=== PATIENT | male | born 1955 | race African-American/Black ===

== ENCOUNTER 2020-04-29 14:00 | Inpatient (IN) ==
[2020-04-29] MEDS ORDERED: Lactated Ringers 1000 ml BAG 1,000 ML IV ONE (14:26)
[2020-04-29 15:24] LABS: ABS Lymphocytes 0.7 10^3/ul (1.0-4.8); ABS Monocytes 0.8 10^3/ul (0-0.8); ABS Neutrophils 6.3 10^3/ul (1.5-7.7); Eosinophil % 0.4 %; Hematocrit 42 % (42-52); Hemoglobin 13.5 g/dL (14.0-18.0); Lymphocyte % 9.2 %; Mean Corpuscular HGB Conc 33 g/dL (31-36); Mean Corpuscular Hemoglobin 27 pg (27-31); Mean Corpuscular Volume 84 fL (80-94); Mean Platelet Volume 9.5 fL (7.4-10.4); Platelet Count 147 10^3/uL (150-450); Red Blood Count 4.95 10^6 /uL (4.18-5.48); Red Cell Distribution Width 15 % (10-15); White Blood Count 7.8 10^3/uL (3.5-10.8)
[2020-04-29 15:32] LABS: INR 1.88 (0.82-1.09)
[2020-04-29 15:42] LABS: ALT 266 U/L (7-52); AST 226 U/L (13-39); Albumin 4.1 g/dL (3.2-5.2); Albumin/Globulin Ratio 1.6 (1-3); Alkaline Phosphatase 40 U/L (34-104); Anion Gap 7 mmol/L (2-11); BUN/Creatinine Ratio 21.4 (8-20); Blood Urea Nitrogen 27 mg/dL (6-24); CO2 Carbon Dioxide 30 mmol/L (22-32); Calcium 9.3 mg/dL (8.6-10.3); Chloride 102 mmol/L (101-111); EGFR African American 69.3 (>60); EGFR Non-African American 57.3 (>60); Globulin 2.6 g/dL (2-4); Glucose 99 mg/dL (70-100); Potassium 3.9 mmol/L (3.5-5.0); Sodium 139 mmol/L (135-145); Total Protein 6.7 g/dL (6.4-8.9)
[2020-04-29 15:48] LABS: Troponin I 0.11 ng/mL (<0.03)
[2020-04-29 16:03] LABS: Influenza A Molecular Negative (Negative); Influenza B Molecular Negative (Negative)
[2020-04-29 16:04] LABS: Resp Syncytial Virus Molecular Negative (Negative)
[2020-04-29] MEDS ORDERED: Furosemide 40 mg/4 ml IV VIAL IV SLOW PU ONE (17:02)
[2020-04-29] MEDS ORDERED: Albuterol/Ipratropium NEB.SOL (2.5/0.5 MG) 3 ML NEB.SOLN INH PRN (17:06)
[2020-04-29 18:31] LABS: Hepatitis B Surface Antigen Nonreactive (Nonreactive)
[2020-04-29 18:36] LABS: Hepatitis A Ab IgM Negative (Negative)
[2020-04-29 18:37] LABS: Hepatitis B Core IgM Nonreactive (Nonreactive)
[2020-04-29 19:16] LABS: Hepatitis C Antibody Reactive (Negative)
[2020-04-29 20:06] LABS: Troponin I 0.08 ng/mL (<0.03)
[2020-04-29] MEDS: Heparin 5000 UNITS/ML 1 mL VIAL SUBCUT SCH (21:13)
[2020-04-29 23:46] LABS: Troponin I 0.07 ng/mL (<0.03)
[2020-04-30 06:29] LABS: ABS Eosinophils 0.1 10^3/ul (0-0.6); ABS Lymphocytes 1.5 10^3/ul (1.0-4.8); ABS Monocytes 0.6 10^3/ul (0-0.8); ABS Neutrophils 4.1 10^3/ul (1.5-7.7); Eosinophil % 1.4 %; Hematocrit 37 % (42-52); Hemoglobin 12.3 g/dL (14.0-18.0); Lymphocyte % 24.2 %; Mean Corpuscular HGB Conc 33 g/dL (31-36); Mean Corpuscular Hemoglobin 28 pg (27-31); Mean Corpuscular Volume 83 fL (80-94); Mean Platelet Volume 9.8 fL (7.4-10.4); Nucleated Red Blood Cells % 0.2; Platelet Count 132 10^3/uL (150-450); Red Blood Count 4.45 10^6 /uL (4.18-5.48); Red Cell Distribution Width 15 % (10-15); White Blood Count 6.4 10^3/uL (3.5-10.8)
[2020-04-30] MEDS: Heparin 5000 UNITS/ML 1 mL VIAL SUBCUT SCH ×3 (06:30→21:51)
[2020-04-30 06:45] LABS: Albumin 3.5 g/dL (3.2-5.2); Albumin/Globulin Ratio 1.4 (1-3); BUN/Creatinine Ratio 24.8 (8-20); Calcium 8.8 mg/dL (8.6-10.3); EGFR African American 81.9 (>60); EGFR Non-African American 67.7 (>60); Globulin 2.5 g/dL (2-4); Indirect Bilirubin 1.5 mg/dL (0.3-1.0); Potassium 3.5 mmol/L (3.5-5.0)
[2020-04-30] MEDS: Aspirin EC 81 mg TAB.EC (enteric coated) PO SCH (08:20)
[2020-04-30] MEDS ORDERED: Furosemide 40 mg/4 ml IV VIAL IV SLOW PU ONE (14:40)
[2020-05-01] MEDS: Heparin 5000 UNITS/ML 1 mL VIAL SUBCUT SCH ×3 (05:06→21:15)
[2020-05-01 06:53] LABS: BUN/Creatinine Ratio 22.9 (8-20); Calcium 8.7 mg/dL (8.6-10.3); EGFR African American 94.8 (>60); EGFR Non-African American 78.4 (>60); Magnesium 1.8 mg/dL (1.9-2.7); Potassium 3.5 mmol/L (3.5-5.0)
[2020-05-01] MEDS ORDERED: Magnesium Sulfate 2 gm BAG 2 GM/50 ML BAG IVPB ONE (08:09)
[2020-05-01] MEDS: Aspirin EC 81 mg TAB.EC (enteric coated) PO SCH (08:37)
[2020-05-01] MEDS ORDERED: Furosemide 40 mg/4 ml IV VIAL IV ONE (14:32)
[2020-05-02] MEDS: Heparin 5000 UNITS/ML 1 mL VIAL SUBCUT SCH (05:01)
[2020-05-02 08:15] LABS: Albumin/Globulin Ratio 1.3 (1-3); BUN/Creatinine Ratio 18.4 (8-20); Calcium 9.1 mg/dL (8.6-10.3); EGFR African American 92.6 (>60); EGFR Non-African American 76.5 (>60); Magnesium 2.2 mg/dL (1.9-2.7); Potassium 3.6 mmol/L (3.5-5.0); Total Bilirubin 1.1 mg/dL (0.2-1.0)
[2020-05-02] MEDS: Aspirin EC 81 mg TAB.EC (enteric coated) PO SCH (08:40)
[2020-05-02 11:11] VITALS: BP 111/61
== END 2020-05-02 13:55 | disposition home or self-care (01) | DRG 292 ==
LOC: ED 14:00 → MEDTELE 14:00
PROVIDERS: ADMIT Internal Medicine; ATTEND Internal Medicine

== ENCOUNTER 2022-03-11 19:47 | Inpatient (IN) ==
[2022-03-11] MEDS ORDERED: BEBTELOVIMAB 175 MG/2 ML VIAL IV ONE (20:56)
[2022-03-11] MEDS ORDERED: Lactated Ringers 1000 ml BAG IV.FLUID IV ONE (23:43)
[2022-03-12 00:05] LABS: Hematocrit 43 % (42-52); Hemoglobin 13.8 g/dL (14.0-18.0); Mean Corpuscular HGB Conc 32 g/dL (31-36); Mean Corpuscular Hemoglobin 27 pg (27-31); Mean Corpuscular Volume 85 fL (80-94); Mean Platelet Volume 9.1 fL (7.4-10.4); Platelet Count 98 10^3/uL (150-450); Red Blood Count 5.09 10^6 /uL (4.18-5.48); Red Cell Distribution Width 17 % (10-15); White Blood Count 3.8 10^3/uL (3.5-10.8)
[2022-03-12 00:25] LABS: Activated Partial Thrombo Time 36.9 seconds (26.0-38.0); INR 2.47 (0.89-1.11)
[2022-03-12 00:38] LABS: Albumin 3.8 g/dL (3.2-5.2); Albumin/Globulin Ratio 1.5 (1-3); C Reactive Protein 9.16 mg/L (<8.01); Calcium 8.5 mg/dL (8.6-10.3); Globulin 2.6 g/dL (2-4); Total Bilirubin 2.4 mg/dL (0.2-1.0); Total Protein 6.4 g/dL (6.4-8.9); eGFR CKD-EPI 74.7 (>60)
[2022-03-12 01:06] LABS: Potassium 3.8 mmol/L (3.5-5.0)
[2022-03-12 01:10] LABS: Urine Appearance Clear; Urine Color Yellow; Urine Specific Gravity 1.015 (1.005-1.030)
[2022-03-12 01:11] LABS: Urine Bilirubin Negative (Negative); Urine Blood Trace (Lysed) (Negative); Urine Glucose 3+ (>=1000 mg/dL) (Negative); Urine Ketones Negative (Negative); Urine Nitrite Negative (Negative); Urine Protein 1+ (30 mg/dL) (Negative)
[2022-03-12 02:10] LABS: Urine Bacteria Absent (Absent); Urine Red Blood Cell Absent (Absent); Urine White Blood Cell Trace(0-5/hpf) (Absent)
[2022-03-12 03:18] LABS: Burr Cells 1+; Target Cells 1+
[2022-03-12 03:19] LABS: ABS Lymphocytes 0.8 10^3/ul (1.0-4.8); Lymphocyte % 19.9 %; Nucleated Red Blood Cells % 0.2
[2022-03-12] MEDS: Albuterol HFA INHALER 8 gm MDI INH PRN (06:40)
[2022-03-12] MEDS ORDERED: Remdesivir 100 mg Vial 200 MG in NS 0.9% 250 ml 210 ML IV ONE (07:05)
[2022-03-12 07:59] LABS: INR 2.45 (0.89-1.11)
[2022-03-12 08:55] LABS: Albumin 3.8 g/dL (3.2-5.2); Albumin/Globulin Ratio 1.5 (1-3); Calcium 8.5 mg/dL (8.6-10.3); Globulin 2.6 g/dL (2-4); Potassium 4.1 mmol/L (3.5-5.0); Total Bilirubin 2.5 mg/dL (0.2-1.0); Total Protein 6.4 g/dL (6.4-8.9); eGFR CKD-EPI 67.2 (>60)
[2022-03-12] MEDS: PTO:DAPAGLIFLOZIN 10 MG TAB (NF) PO SCH (09:03)
[2022-03-12] MEDS ORDERED: Lactated Ringers 500 ml BAG 500 ML IV ONE ×2 (13:46→18:22)
[2022-03-12] MEDS ORDERED: Vancomycin 1,000 MG in NS 0.9% 250 ml 250 ML IVPB ONE (17:45)
[2022-03-12] MEDS ORDERED: Vancomycin per Pharmacy 1 EA NOTE FOLLOW UP SCH (18:00)
[2022-03-13 06:08] LABS: ABS Lymphocytes 0.6 10^3/ul (1.0-4.8); ABS Monocytes 0.7 10^3/ul (0-0.8); ABS Neutrophils 3.8 10^3/ul (1.5-7.7); Hematocrit 43 % (42-52); Hemoglobin 13.9 g/dL (14.0-18.0); Lymphocyte % 12.3 %; Mean Corpuscular HGB Conc 32 g/dL (31-36); Mean Corpuscular Hemoglobin 27 pg (27-31); Mean Corpuscular Volume 84 fL (80-94); Mean Platelet Volume 9.2 fL (7.4-10.4); Nucleated Red Blood Cells % 0.1; Platelet Count 86 10^3/uL (150-450); Red Blood Count 5.12 10^6 /uL (4.18-5.48); Red Cell Distribution Width 18 % (10-15); White Blood Count 5.1 10^3/uL (3.5-10.8)
[2022-03-13 06:09] LABS: INR 3.09 (0.89-1.11)
[2022-03-13 06:33] LABS: Albumin 3.2 g/dL (3.2-5.2); Albumin/Globulin Ratio 1.4 (1-3); Calcium 8.2 mg/dL (8.6-10.3); Globulin 2.3 g/dL (2-4); Potassium 4.2 mmol/L (3.5-5.0); Total Bilirubin 1.7 mg/dL (0.2-1.0); Total Protein 5.5 g/dL (6.4-8.9)
[2022-03-13] MEDS ORDERED: NS 0.9% 500 ml BAG 500 ML IV ONE (09:28)
[2022-03-13 10:14] LABS: Hepatitis B Surface Antigen Nonreactive (Nonreactive)
[2022-03-13 10:19] LABS: Hepatitis A Ab IgM Negative (Negative)
[2022-03-13 10:20] LABS: Hepatitis B Core IgM Nonreactive (Nonreactive)
[2022-03-13] MEDS: Remdesivir 100 mg Vial 100 MG in NS 0.9% 250 ml 230 ML IV SCH (10:20)
[2022-03-13 11:12] LABS: Hepatitis C Antibody Reactive (Negative)
[2022-03-13] MEDS: PTO:DAPAGLIFLOZIN 10 MG TAB (NF) PO SCH (14:14)
[2022-03-13 18:24] LABS: Urine Benzodiazepine Screen None Detected (None Detect); Urine Cannabinoids Screen None Detected (None Detect); Urine Opiates Screen None Detected (None Detect)
[2022-03-14 06:13] LABS: ABS Lymphocytes 0.4 10^3/ul (1.0-4.8); ABS Monocytes 0.6 10^3/ul (0-0.8); ABS Neutrophils 6.5 10^3/ul (1.5-7.7); Hematocrit 43 % (42-52); Hemoglobin 13.9 g/dL (14.0-18.0); Lymphocyte % 5.5 %; Mean Corpuscular HGB Conc 32 g/dL (31-36); Mean Corpuscular Hemoglobin 28 pg (27-31); Mean Corpuscular Volume 85 fL (80-94); Nucleated Red Blood Cells % 0.1; Platelet Count 86 10^3/uL (150-450); Red Blood Count 5.03 10^6 /uL (4.18-5.48); Red Cell Distribution Width 18 % (10-15); White Blood Count 7.6 10^3/uL (3.5-10.8)
[2022-03-14 06:45] LABS: Albumin 3.6 g/dL (3.2-5.2); Albumin/Globulin Ratio 1.4 (1-3); Calcium 8.7 mg/dL (8.6-10.3); Globulin 2.5 g/dL (2-4); Potassium 4.5 mmol/L (3.5-5.0); Total Bilirubin 1.5 mg/dL (0.2-1.0); Total Protein 6.1 g/dL (6.4-8.9)
[2022-03-14] MEDS: PTO:DAPAGLIFLOZIN 10 MG TAB (NF) PO SCH (09:31)
[2022-03-14] MEDS: Remdesivir 100 mg Vial 100 MG in NS 0.9% 250 ml 230 ML IV SCH (09:31)
[2022-03-14] MEDS: Albuterol HFA INHALER 8 gm MDI INH PRN (12:35)
[2022-03-15 06:37] LABS: INR 3.69 (0.89-1.11)
[2022-03-15 06:57] LABS: ABS Lymphocytes 0.5 10^3/ul (1.0-4.8); ABS Monocytes 0.8 10^3/ul (0-0.8); ABS Neutrophils 6.4 10^3/ul (1.5-7.7); Hematocrit 42 % (42-52); Hemoglobin 14.2 g/dL (14.0-18.0); Lymphocyte % 6.6 %; Mean Corpuscular HGB Conc 33 g/dL (31-36); Mean Corpuscular Hemoglobin 29 pg (27-31); Mean Corpuscular Volume 86 fL (80-94); Mean Platelet Volume 9.6 fL (7.4-10.4); Platelet Count 80 10^3/uL (150-450); Red Blood Count 4.96 10^6 /uL (4.18-5.48); Red Cell Distribution Width 17 % (10-15); White Blood Count 7.7 10^3/uL (3.5-10.8)
[2022-03-15 07:01] LABS: Albumin 3.5 g/dL (3.2-5.2); Albumin/Globulin Ratio 1.4 (1-3); Calcium 8.8 mg/dL (8.6-10.3); Globulin 2.5 g/dL (2-4); Potassium 4.3 mmol/L (3.5-5.0); Total Bilirubin 1.4 mg/dL (0.2-1.0); eGFR CKD-EPI 99.5 (>60)
[2022-03-15] MEDS: PTO:DAPAGLIFLOZIN 10 MG TAB (NF) PO SCH (10:05)
[2022-03-15 12:06] VITALS: BP 102/82
== END 2022-03-15 15:15 | disposition home or self-care (01) | DRG 177 ==
LOC: ED 19:47 → EDHOLD 03-12 05:14 → SUATTDRO 03-12 05:14 → EDHOLD 03-12 13:08 → MED 03-12 14:48
PROVIDERS: ADMIT Internal Medicine; ATTEND Internal Medicine